=== PATIENT | female | born 1940 | race Caucasian/White ===

== ENCOUNTER 2018-12-05 09:17 | Emergency (ER) | payer MEDICARE, BC ==
[~2018-12-05] VITALS: Ht 165.1 cm; Wt 81.8 kg
--- NOTE | 2018-12-05 11:05 | NUR ---
PATIENT TO CT AT THIS TIME VIA WHEELCHAIR.
[2018-12-05] MEDS ORDERED: dexamethasone 4mg tablet PO ONE (11:25)
[2018-12-05] MEDS ORDERED: HYDROcodone/acetaminophen 5mg/325mg tablet PO ONE (11:25)
[2018-12-05] MEDS ORDERED: PRED10TA23 PO (11:53)
[2018-12-05] MEDS ORDERED: HYDR-4383 PO (11:53)
[2018-12-05] MEDS ORDERED: ONDA4TAB6 PO (11:53)
[2018-12-05 12:12] VITALS: BP 113/65
== END 2018-12-05 12:14 | disposition home or self-care (01) ==
LOC: ER 09:18
DX: M54.5 Low back pain (principal); I48.91 Unspecified atrial fibrillation; I50.9 Heart failure, unspecified; Z88.5 Allergy status to narcotic agent; Z88.6 Allergy status to analgesic agent; Z79.899 Other long term (current) drug therapy
CPT/HCPCS: 72131; 99284

== ENCOUNTER 2020-01-04 05:36 | Day surgery (SDC) | payer MEDICARE, BC, MEDICAID ==
[2020-01-04] VITALS (18 sets, daily range): BP systolic 88–157; BP diastolic 36–93
[~2020-01-04] VITALS: Ht 165.1 cm; Wt 71.7 kg
[~2020-01-04 05:36] MED LIST: HYDR-4383 PO; ONDA4TAB6 PO
[2020-01-04] MEDS ORDERED: normal saline 1000ml 1,000 ML IV SCH (06:05)
[2020-01-04] MEDS ORDERED: fentaNYL/PF 50MCG/1 ML 2ML syringe IV ONE (06:05)
[2020-01-04] MEDS ORDERED: MIDAZolam 1mg/ml 10ml vial IV ONE (06:05)
[2020-01-04] MEDS ORDERED: AMIO200T62 PO (07:02)
[2020-01-04] MEDS ORDERED: APIX5TAB3 PO (07:02)
[2020-01-04] MEDS ORDERED: METO25TA6 PO (07:02)
[2020-01-04] MEDS ORDERED: FURO-150 PO (07:02)
[2020-01-04] MEDS ORDERED: POTA20PA40 PO (07:02)
[2020-01-04] MEDS ORDERED: GABA300C PO (07:02)
[2020-01-04] MEDS ORDERED: AMLO5TAB PO (07:02)
[2020-01-04] MEDS ORDERED: OMEP-50 PO (07:02)
[2020-01-04] MEDS ORDERED: SIMV-45 PO (07:02)
[2020-01-04 07:10] LABS: BASOPHILS % (AUTO) 0.4 % (0-1); EOSINOPHILS # (AUTO) 0.1 X10'3 (0-0.9); EOSINOPHILS % (AUTO) 2.3 % (0-6); HEMATOCRIT 38.8 % (35.0-45.0); LYMPHOCYTES # (AUTO) 1.6 X10'3 (1.1-4.8); LYMPHOCYTES % (AUTO) 30.5 % (21-51); MEAN CORPUSCULAR HEMOGLOBIN 32.1 PG (27.0-31.0); MEAN CORPUSCULAR HGB CONC 33.5 g/dL (33.0-36.5); MEAN CORPUSCULAR VOLUME 95.9 FL (78-98); MEAN PLATELET VOLUME 7.6 FL (7.4-10.4); MONOCYTES # (AUTO) 0.4 X10'3 (0-0.9); MONOCYTES % (AUTO) 7.4 % (2-12); NEUTROPHILS # (AUTO) 3.2 X10'3 (1.8-7.7); NEUTROPHILS % (AUTO) 59.4 % (42-75); PLATELET COUNT 194 X10'3 (140-440); RED BLOOD COUNT 4.05 X10'6 (4.20-5.60); RED CELL DISTRIBUTION WIDTH 14.6 % (11.5-14.5); WHITE BLOOD COUNT 5.4 X10'3 (4.5-11.0)
[2020-01-04 07:20] LABS: ALBUMIN 3.7 G/DL (3.4-5.0); ANION GAP 4 (8-16); BLOOD UREA NITROGEN 15 MG/DL (7-18); BUN/CREATININE RATIO 16.1 (6.6-38.0); CALCIUM 8.7 MG/DL (8.5-10.1); CHLORIDE 105 MMOL/L (99-107); CREATININE 0.93 MG/DL (0.40-0.90); GLUCOSE 84 MG/DL (70-104); POTASSIUM 4.1 MMOL/L (3.5-5.1); SODIUM 142 MMOL/L (135-145); TOTAL CARBON DIOXIDE 32.8 MMOL/L (24-32); eGFR 58 ML/MIN
--- NOTE | 2020-01-04 09:01 | NUR ---
Called family per pt request about discharge time. Family verbalized understanding
== END 2020-01-04 10:40 | disposition home or self-care (01) ==
LOC: SSTAY O 05:36
PROVIDERS: ATTEND Student in an Organized Health Care Education/Training Program
DX: I48.21 Permanent atrial fibrillation (principal); I11.0 Hypertensive heart disease with heart failure; I50.9 Heart failure, unspecified; G47.33 Obstructive sleep apnea (adult) (pediatric); E11.9 Type 2 diabetes mellitus without complications; Z86.718 Personal history of other venous thrombosis and embolism; Z79.899 Other long term (current) drug therapy; Z88.5 Allergy status to narcotic agent; Z79.01 Long term (current) use of anticoagulants
CPT/HCPCS: 36415; 80048; 85025; 85610; 92960; 93005; 94799; J2250; J3010; J7030

== ENCOUNTER 2020-01-13 17:05 | Observation (INO) | payer MEDICARE, BC, MEDICAID ==
[~2020-01-13] VITALS: Ht 167.6 cm; Wt 74.8 kg
[~2020-01-13 17:05] MED LIST changes: +AMIO200T62 PO; +AMLO5TAB PO; +APIX5TAB3 PO; +FURO-150 PO; +GABA300C PO; -HYDR-4383 PO; +METO25TA6 PO; +OMEP-50 PO; -ONDA4TAB6 PO; +POTA20PA40 PO; +SIMV-45 PO
--- NOTE | 2020-01-13 17:21 | NUR ---
PT TEARFUL, STATES THAT SHE IS CONCERNED ABOUT HER AT HOME HE HAS ALZHEIMER'S. PT ADDS THAT THE [facility] WAS ATTEMPTING TO CONTACT SON, BUT WAS UNSUCCESSFUL PRIOR TO HER LEAVING IN THE AMBULANCE. PT ALSO REQUESTING THAT WE CONTACT HER DAUGHTER IN [place].
--- NOTE | 2020-01-13 17:31 | NUR ---
SPOKE TO PT'S DAUGHTER REGARDING PT CONDITION. SHE STATES THAT SHE CAN BE CONTACTED FOR ANY QUESTIONS, AND WILL RETURN CALL IN ROUGHLY 1-2 HOURS FOR AN UPDATE. CONTACT INFORMATION VERIFIED IN CHART.
[2020-01-13 18:26] LABS: BASOPHILS % (AUTO) 0.3 % (0-1); EOSINOPHILS % (AUTO) 0.8 % (0-6); HEMATOCRIT 40.3 % (35.0-45.0); HEMOGLOBIN 13.4 g/dl (12.0-16.0); LYMPHOCYTES # (AUTO) 1.8 X10'3 (1.1-4.8); LYMPHOCYTES % (AUTO) 30.3 % (21-51); MEAN CORPUSCULAR HEMOGLOBIN 31.8 PG (27.0-31.0); MEAN CORPUSCULAR HGB CONC 33.2 g/dL (33.0-36.5); MEAN CORPUSCULAR VOLUME 95.7 FL (78-98); MEAN PLATELET VOLUME 7.6 FL (7.4-10.4); MONOCYTES # (AUTO) 0.4 X10'3 (0-0.9); MONOCYTES % (AUTO) 7.1 % (2-12); NEUTROPHILS # (AUTO) 3.6 X10'3 (1.8-7.7); NEUTROPHILS % (AUTO) 61.5 % (42-75); PLATELET COUNT 223 X10'3 (140-440); RED BLOOD COUNT 4.22 X10'6 (4.20-5.60); RED CELL DISTRIBUTION WIDTH 14.7 % (11.5-14.5); WHITE BLOOD COUNT 5.8 X10'3 (4.5-11.0)
[2020-01-13 18:28] LABS: ALANINE AMINOTRANSFERASE 17 U/L (12-78); ALBUMIN 3.7 G/DL (3.4-5.0); ALBUMIN/GLOBULIN RATIO 1.1 (1.1-1.5); ALKALINE PHOSPHATASE 67 IU/L (46-116); ANION GAP 4 (8-16); ASPARTATE AMINO TRANSFERASE 25 U/L (10-37); BILIRUBIN,TOTAL 0.6 MG/DL (0.1-1.0); BLOOD UREA NITROGEN 13 MG/DL (7-18); BUN/CREATININE RATIO 15.7 (6.6-38.0); CALCIUM 9.1 MG/DL (8.5-10.1); CHLORIDE 105 MMOL/L (99-107); CREATININE 0.83 MG/DL (0.40-0.90); GLUCOSE 90 MG/DL (70-104); POTASSIUM 3.9 MMOL/L (3.5-5.1); SODIUM 140 MMOL/L (135-145); TOTAL CARBON DIOXIDE 31.4 MMOL/L (24-32); TOTAL PROTEIN 7.2 G/DL (6.4-8.2); eGFR 66 ML/MIN
[2020-01-13 18:52] LABS: MAGNESIUM 2.3 MG/DL (1.5-2.4); TROPONIN I 0.07 NG/ML (0.0-0.05)
[2020-01-13 20:01] LABS: PARTIAL THROMBOPLASTIN TIME 30 SECONDS (22-32)
[2020-01-13] MEDS ORDERED: acetaminophen 325mg tablet PO PRN (20:30)
[2020-01-13] MEDS ORDERED: morphine 2 MG/ML inj. syringe IV PRN (20:30)
[2020-01-13] MEDS ORDERED: potassium Cl 20 mEq SR tablet PO PRN ×2 (20:30)
[2020-01-13] MEDS ORDERED: magnesium 4gm in 100ml NS 100 ML IV PRN (20:30)
[2020-01-13] MEDS ORDERED: ondansetron/PF 4mg/2ml inj IV PRN (20:30)
[2020-01-13] MEDS ORDERED: magnesium 2GM in 50ml NS 50 ML IV PRN (20:30)
[2020-01-13] MEDS ORDERED: magnesium Cl slow-release 64mg tablet PO PRN (20:30)
[2020-01-13] MEDS ORDERED: potassium CL 10mEq/100ml bag 100 ML IV PRN ×2 (20:30)
[2020-01-13] MEDS ORDERED: temazepam 15mg capsule PO PRN (21:00)
[2020-01-13] MEDS ORDERED: gabapentin 300mg capsule PO SCH (21:00)
[2020-01-13] MEDS ORDERED: apixaban 5mg tablet PO ONE (21:35)
--- NOTE | 2020-01-13 21:40 | NUR ---
Patient in room PCU 3014. I have received report from Florecita KERN in the ER and had the opportunity to ask questions and assume patient care.
[2020-01-13 22:00] VITALS: BP 139/74
--- NOTE | 2020-01-13 22:10 | NUR ---
Patient was transported by gurney from the ER to the third floor. Patient was able to ambulate independently to the bed. Patient is in no acute distress.
[2020-01-13] MEDS ORDERED: nitroGLYCERIN 0.4mg SUBLingual tab SL PRN (23:15)
[2020-01-13] MEDS ORDERED: aminophylline 250mg/10ml inj. IV PRN (23:15)
[2020-01-13] MEDS ORDERED: metoprolol tartrate 1mg/ml inj IV PRN (23:15)
[2020-01-14] VITALS (10 sets, daily range): BP systolic 98–133; BP diastolic 37–60
[2020-01-14 01:16] LABS: BASOPHILS % (AUTO) 0.4 % (0-1); EOSINOPHILS # (AUTO) 0.1 X10'3 (0-0.9); EOSINOPHILS % (AUTO) 1.1 % (0-6); HEMATOCRIT 42.6 % (35.0-45.0); HEMOGLOBIN 14.3 g/dl (12.0-16.0); LYMPHOCYTES # (AUTO) 2.2 X10'3 (1.1-4.8); LYMPHOCYTES % (AUTO) 35.6 % (21-51); MEAN CORPUSCULAR HEMOGLOBIN 32.3 PG (27.0-31.0); MEAN CORPUSCULAR HGB CONC 33.6 g/dL (33.0-36.5); MEAN PLATELET VOLUME 7.6 FL (7.4-10.4); MONOCYTES # (AUTO) 0.4 X10'3 (0-0.9); MONOCYTES % (AUTO) 6.6 % (2-12); NEUTROPHILS # (AUTO) 3.5 X10'3 (1.8-7.7); NEUTROPHILS % (AUTO) 56.3 % (42-75); PLATELET COUNT 226 X10'3 (140-440); RED BLOOD COUNT 4.44 X10'6 (4.20-5.60); RED CELL DISTRIBUTION WIDTH 15.2 % (11.5-14.5); WHITE BLOOD COUNT 6.3 X10'3 (4.5-11.0)
[2020-01-14 01:34] LABS: ALBUMIN 3.8 G/DL (3.4-5.0); ANION GAP 5 (8-16); BLOOD UREA NITROGEN 11 MG/DL (7-18); BUN/CREATININE RATIO 13.6 (6.6-38.0); CALCIUM 9.1 MG/DL (8.5-10.1); CHLORIDE 106 MMOL/L (99-107); CHOL/HDL RATIO 2.2 (0.00-4.99); CHOLESTEROL 201 MG/DL (0-200); CREATININE 0.81 MG/DL (0.40-0.90); GLUCOSE 87 MG/DL (70-104); HDL CHOLESTEROL 92 MG/DL (35-60); LDL CHOLESTEROL 94 MG/DL (50-100); MAGNESIUM 2.4 MG/DL (1.5-2.4); POTASSIUM 3.6 MMOL/L (3.5-5.1); SODIUM 141 MMOL/L (135-145); TOTAL CARBON DIOXIDE 30.2 MMOL/L (24-32); TRIGLYCERIDES 46 MG/DL (20-135); eGFR 68 ML/MIN
[2020-01-14] MEDS ORDERED: regadenoson 0.4mg/5ml syringe IV ONE (06:00)
--- NOTE | 2020-01-14 06:00 | NUR ---
Patient in room PCU 3014. I have received report from Naty KERN and had the opportunity to ask questions and assume patient care.
--- NOTE | 2020-01-14 06:27 | NUR ---
Problems reprioritized. Patient report given, questions answered & plan of care reviewed with Jane KERN.
--- NOTE | 2020-01-14 07:49 | NUR ---
[facility] until after procedure and give all other morning meds.
[2020-01-14] MEDS ORDERED: amLODIPine 5mg tablet PO SCH (08:00)
[2020-01-14] MEDS ORDERED: apixaban 5mg tablet PO SCH (08:00)
[2020-01-14] MEDS ORDERED: apixaban 5mg tablet PO ONE ×2 (08:00)
[2020-01-14] MEDS ORDERED: K and/or MAG REPLACEMENT MC SCH (08:00)
[2020-01-14] MEDS ORDERED: amiodarone 200mg tablet PO SCH (08:00)
[2020-01-14] MEDS ORDERED: metoprolol tartrate 25mg tablet PO SCH (08:00)
--- NOTE | 2020-01-14 12:44 | NUR ---
PAGER ID: [phone] MESSAGE: [id number] Reinaldo Puente results: no stress-induced myocardial ischemia. May I let patient eat? Heidi [phone]
[2020-01-14] MEDS ORDERED: ondansetron 4mg rapidly disintigrating tab PO PRN (15:35)
--- NOTE | 2020-01-14 16:45 | NUR ---
Per MD orders, patient stable for discharge home. No new prescriptions to call in. Discharge packet reviewed at bedside and all questions answered to patient satisfaction. PIV discontinued cannula intact. Tele monitoring discontinued VSS. All belongings sent with patient. Transferred to private vehicle via wheelchair accompanied by aide.
--- NOTE | 2020-01-14 16:53 | NUR ---
Called Dr Edson Corona's office, spoke with statistical secretary and provided Shoshana gericare aide's number and she will contact to set up earlier appt per patient request
== END 2020-01-14 16:45 | disposition home or self-care (01) ==
LOC: ER 17:06 → ED HOLD 20:29 → PCU 3S 21:55
PROVIDERS: ADMIT Internal Medicine; ATTEND Family Medicine
DX: I21.A1 Myocardial infarction type 2 (principal); I48.20 Chronic atrial fibrillation, unspecified; I11.0 Hypertensive heart disease with heart failure; I50.9 Heart failure, unspecified; Z96.651 Presence of right artificial knee joint; Z79.01 Long term (current) use of anticoagulants; Z79.899 Other long term (current) drug therapy; Z88.5 Allergy status to narcotic agent; Z88.8 Allergy status to other drugs, medicaments and biological substances
CPT/HCPCS: 36415; 71045; 78452; 80048; 80053; 80061; 83735; 83880; 84484; 85025; 85610; 85730; 87081; 93005; 93017; 93306; 99285; A9500; G0378; J2785

== ENCOUNTER 2020-07-13 11:31 | Emergency (ER) | payer MEDICARE, BC, MEDICAID ==
[~2020-07-13] VITALS: Ht 165.1 cm; Wt 69.1 kg
[~2020-07-13 11:31] MED LIST changes: +LOP25T PO; -METO25TA6 PO; -OMEP-50 PO; -SIMV-45 PO
--- NOTE | 2020-07-13 12:00 | NUR ---
CALL FROM DAUGHTER DASHA SHE LIVES IN [place] BUT IS BEST CONTACT. SHE STATES PT HAS PRE DEMENTA AND IS FORGETFUL AT [facility]. SHE ALSO STATES THE NEIGHBOR THAT FOUND PT NOTED A STONG SMELL OF GAS IN THE HOUSE AND FOUND THE STOVE WAS ON. INFORMED LEATHA SANTANA ORDERS FOR ABG PLACED
[2020-07-13 12:37] LABS: BASOPHILS % (AUTO) 0.4 % (0-1); EOSINOPHILS # (AUTO) 0.1 X10'3 (0-0.9); EOSINOPHILS % (AUTO) 1.8 % (0-6); HEMATOCRIT 39.1 % (35.0-45.0); HEMOGLOBIN 13.2 g/dl (12.0-16.0); LYMPHOCYTES # (AUTO) 1.2 X10'3 (1.1-4.8); LYMPHOCYTES % (AUTO) 20.4 % (21-51); MEAN CORPUSCULAR HEMOGLOBIN 32.8 PG (27.0-31.0); MEAN CORPUSCULAR HGB CONC 33.7 g/dL (33.0-36.5); MEAN CORPUSCULAR VOLUME 97.3 FL (78-98); MEAN PLATELET VOLUME 7.3 FL (7.4-10.4); MONOCYTES # (AUTO) 0.4 X10'3 (0-0.9); MONOCYTES % (AUTO) 7.7 % (2-12); NEUTROPHILS % (AUTO) 69.7 % (42-75); PLATELET COUNT 218 X10'3 (140-440); RED BLOOD COUNT 4.02 X10'6 (4.20-5.60); RED CELL DISTRIBUTION WIDTH 14.3 % (11.5-14.5); WHITE BLOOD COUNT 5.7 X10'3 (4.5-11.0)
[2020-07-13 12:38] LABS: ABG BASE EXCESS 2.2 mmol/L (-2.0-2.0); ABG HCO3 27.1 mmol/L (22.0-26.0); ABG OXYGEN SATURATION 94.9 % (94-97); ABG PCO2 (T) 43.3 mmHg (32.0-45.0); ABG PO2 (T) 70.5 mmHg (75.0-100.0); ALLEN'S TEST POSITIVE; FCOHb 0.7 % (0.0-3.9); FMetHb 0.3 % (0.0-1.5)
[2020-07-13 12:52] LABS: ALANINE AMINOTRANSFERASE 20 U/L (12-78); ALBUMIN 3.7 G/DL (3.4-5.0); ALBUMIN/GLOBULIN RATIO 1.1 (1.1-1.5); ALKALINE PHOSPHATASE 61 IU/L (46-116); ANION GAP 5 (8-16); ASPARTATE AMINO TRANSFERASE 27 U/L (10-37); BILIRUBIN,TOTAL 0.7 MG/DL (0.1-1.0); BLOOD UREA NITROGEN 21 MG/DL (7-18); BUN/CREATININE RATIO 22.3 (6.6-38.0); CALCIUM 9.2 MG/DL (8.5-10.1); CHLORIDE 107 MMOL/L (99-107); CREATININE 0.94 MG/DL (0.40-0.90); GLUCOSE 96 MG/DL (70-104); POTASSIUM 4.2 MMOL/L (3.5-5.1); SODIUM 147 MMOL/L (135-145); TOTAL CARBON DIOXIDE 34.6 MMOL/L (24-32); TOTAL PROTEIN 7.1 G/DL (6.4-8.2); eGFR 57 ML/MIN
[2020-07-13] MEDS ORDERED: normal saline 1000ml 1,000 ML IV ONE (13:20)
[2020-07-13] MEDS ORDERED: iohexol 350MG/ML 100ml bottle IV ONE (13:41)
--- NOTE | 2020-07-13 13:57 | NUR ---
PT IS IN CT
[2020-07-13 14:21] VITALS: BP 139/60
--- NOTE | 2020-07-13 15:37 | NUR ---
Daughter Mary [phone]
== END 2020-07-13 15:40 | disposition home or self-care (01) ==
LOC: ER 11:31
DX: R06.02 Shortness of breath (principal); R61 Generalized hyperhidrosis; I48.91 Unspecified atrial fibrillation; I25.10 Atherosclerotic heart disease of native coronary artery without angina pectoris; I50.9 Heart failure, unspecified; K21.9 Gastro-esophageal reflux disease without esophagitis; G89.29 Other chronic pain; Z95.0 Presence of cardiac pacemaker; Z98.890 Other specified postprocedural states; Z88.6 Allergy status to analgesic agent; Z88.8 Allergy status to other drugs, medicaments and biological substances; Z79.899 Other long term (current) drug therapy
CPT/HCPCS: 36415; 36600; 71045; 71275; 80053; 82803; 83880; 84145; 84484; 85018; 85025; 93005; 96360; 99285; J7030; Q9967